=== PATIENT | female | born 1950 | race Caucasian/White ===

== ENCOUNTER → 2017-10-04 | Outpatient (CLI) | payer OTHER, MEDICARE | LOC: FIMAGING 11:48 | PROVIDERS: ATTEND Internal Medicine | DX: E21.1 Secondary hyperparathyroidism, not elsewhere classified (principal) | CPT/HCPCS: 78070; A9500 ==

== ENCOUNTER → 2018-04-20 | Outpatient (CLI) | payer OTHER, MEDICARE | LOC: FIMAGING 12:51 | PROVIDERS: ATTEND Internal Medicine | DX: Z12.31 Encounter for screening mammogram for malignant neoplasm of breast (principal) ==

== ENCOUNTER → 2018-10-31 | Outpatient (CLI) | payer OTHER, MEDICARE | LOC: EMCIMAGING 09:37 | PROVIDERS: ATTEND Nurse Practitioner Family | DX: M54.5 Low back pain (principal) | CPT/HCPCS: 72170-PN; 72220-PN; 74018-PN ==